=== PATIENT | male | born 1995 | race Two or more races ===

== ENCOUNTER 2022-02-09 17:38 | Inpatient (IN) | payer MEDICAID, MEDICARE ==
[~2022-02-09] VITALS: Ht 180.3 cm; Wt 105.9 kg
[2022-02-09 18:37] LABS: HEMATOCRIT 42.4 % (42.0-52.0); HEMOGLOBIN 14.3 g/dl (13.5-17.5); MEAN CORPUSCULAR HEMOGLOBIN 30.8 pg (27.0-33.0); MEAN CORPUSCULAR HGB CONC 33.7 g/dl (32.0-36.5); MEAN CORPUSCULAR VOLUME 91.2 fl (80.0-96.0); PLATELET COUNT, AUTOMATED 269 10^3/uL (150-450); RED BLOOD COUNT 4.65 10^6/uL (4.30-6.10); WHITE BLOOD COUNT 10.7 10^3/uL (4.0-10.0)
[2022-02-09 19:12] LABS: RSV AMPLIFICATION NEGATIVE (NEGATIVE)
[2022-02-09 19:17] LABS: ACETAMINOPHEN LEVEL < 2.0 UG/ML (10.0-30.0); ALBUMIN 3.9 GM/DL (3.2-5.2); ALT/SGPT 54 U/L (12-78); BILIRUBIN,DIRECT 0.2 MG/DL (0.0-0.2); BILIRUBIN,TOTAL 0.6 MG/DL (0.2-1.0); BLOOD UREA NITROGEN 12 MG/DL (7-18); CALCIUM LEVEL 9.4 MG/DL (8.5-10.1); CARBON DIOXIDE LEVEL 25 MEQ/L (21-32); CHLORIDE LEVEL 107 MEQ/L (98-107); CREATININE FOR GFR 0.97 MG/DL (0.70-1.30); ETHYL ALCOHOL (ETHANOL) < 0.003 % (0.000-0.010); GLOMERULAR FILTRATION RATE > 60.0 (>60); GLUCOSE, FASTING 102 MG/DL (70-100); POTASSIUM SERUM 3.4 MEQ/L (3.5-5.1); SALICYLATE LEVEL < 1.7 MG/DL (5.0-30.0); SODIUM LEVEL 139 MEQ/L (136-145); TOTAL PROTEIN 7.8 GM/DL (6.4-8.2)
[2022-02-09 20:31] LABS: AMPHETAMINES LEVEL URINE NEGATIVE (NEGATIVE); BARBITURATES URINE NEGATIVE (NEGATIVE); BENZODIAZEPINES URINE NEGATIVE (NEGATIVE); CANNABINOIDS URINE POSITIVE (NEGATIVE); COCAINE METABOLITE URINE NEGATIVE (NEGATIVE); METHADONE URINE NEGATIVE (NEGATIVE); OPIATES URINE NEGATIVE (NEGATIVE); PHENCYCLIDINE URINE NEGATIVE (NEGATIVE)
[2022-02-09] MEDS ORDERED: OLANZapine ORAL DISINTEGRATING TAB 5MG PO ONE (21:45)
[2022-02-09] MEDS ORDERED: diphenhydrAMINE 50MG/ML VIAL (J1200) IM ONE (21:55)
[2022-02-09] MEDS ORDERED: OLANZapine INTRAMUSCULAR 10MG VIAL IM ONE (21:55)
[2022-02-09] MEDS ORDERED: MIDAZOLAM INJ 2MG/2ML VIAL (J2250 PER 1MG) IM ONE (21:55)
[2022-02-10] MEDS ORDERED: LORazepam 1 MG TAB PO ONE (14:05)
[2022-02-10] MEDS ORDERED: OLANZapine ORAL DISINTEGRATING TAB 5MG PO ONE (14:05)
[2022-02-11 15:13] LABS: RSV AMPLIFICATION NEGATIVE (NEGATIVE)
[2022-02-11] MEDS ORDERED: NICOTINE 21MG/24HR 1 EA TRANSDERMAL TD PRN (18:55)
[2022-02-11] MEDS ORDERED: IBUPROFEN 400MG TAB PO PRN (18:55)
[2022-02-11] MEDS ORDERED: OLANZapine ORAL DISINTEGRATING TAB 5MG PO PRN (18:55)
[2022-02-11] MEDS ORDERED: traZODone 50 MG TAB PO PRN (18:55)
[2022-02-11] MEDS ORDERED: MOM 30ML SUSPENSION UDC PO PRN (18:55)
[2022-02-11] MEDS ORDERED: MAALOX 30 ML SUSP *UDC PO PRN (18:55)
[2022-02-11] MEDS: PALIPERIDONE 3 MG ER TAB (INVEGA) PO SCH ×2 (23:23→23:24)
[2022-02-12 00:01] VITALS: BP 129/90
[2022-02-12] MEDS ORDERED: diphenhydrAMINE 50MG CAP PO ONE (03:00)
[2022-02-12] MEDS ORDERED: LORazepam 1 MG TAB PO ONE (03:00)
[2022-02-12 06:49] VITALS: BP 138/80
[2022-02-12] MEDS ORDERED: BENZTROPINE 1 MG TAB PO PRN (09:20)
[2022-02-12] MEDS ORDERED: DIVA500T9 PO (17:29)
[2022-02-12] MEDS ORDERED: HALO5TAB33 PO (17:29)
[2022-02-12] MEDS ORDERED: QUET100T2 PO (17:29)
[2022-02-12] MEDS ORDERED: COMMENTS (17:29)
[2022-02-12] MEDS ORDERED: TRAZ-252 PO (17:29)
[2022-02-12] MEDS ORDERED: HOME MED LIST COMPLETE! XX SCH (17:30)
[2022-02-12 18:08] VITALS: BP 152/93
[2022-02-12] MEDS ORDERED: POTASSIUM CHLORIDE 10MEQ SR TABLET PO ONE (18:10)
[2022-02-13 06:29] VITALS: BP 137/83
[2022-02-13 17:48] VITALS: BP 143/84
[2022-02-14 07:01] VITALS: BP 133/63
[2022-02-14] MEDS ORDERED: HALO5TAB33 PO (12:55)
[2022-02-14] MEDS ORDERED: TRAZ-252 PO (12:55)
[2022-02-14] MEDS ORDERED: BENZ-52 PO (12:55)
== END 2022-02-14 13:15 | disposition home or self-care (01) | DRG 750 ==
LOC: EDBD 17:38 → M ED 17:38 → M ED INP 02-11 18:55 → M PSY 02-12 00:05
PROVIDERS: ADMIT Psychiatry & Neurology Psychiatry; ATTEND Psychiatry & Neurology Psychiatry
DX: F25.0 Schizoaffective disorder, bipolar type (principal); F12.951 Cannabis use, unspecified with psychotic disorder with hallucinations; Z20.822 Contact with and (suspected) exposure to COVID-19; Z79.899 Other long term (current) drug therapy; Z88.1 Allergy status to other antibiotic agents; E87.6 Hypokalemia